=== PATIENT | female | born 1980 | race Caucasian/White ===

== ENCOUNTER → 2017-06-02 | Outpatient (CLI) | payer OTHER ==
[~2017-06-02] MED LIST: CATAFLAM 50 MG; FLEXERIL 10 MG PO; FLEXERIL10 MG PO; FLUCONAZOLE150 MG PO; MOTRIN600 MG PO
== END | disposition home or self-care (01) ==
LOC: PPHC 08:58
DX: Z00.00 Encounter for general adult medical examination without abnormal findings (principal)

== ENCOUNTER 2017-07-23 13:14 | Outpatient (CLI) | payer OTHER | END 2017-07-23 13:19 | disposition home or self-care (01) | LOC: LAB 13:14 | DX: Z11.3 Encounter for screening for infections with a predominantly sexual mode of transmission (principal); Z01.89 Encounter for other specified special examinations; E78.5 Hyperlipidemia, unspecified; E55.9 Vitamin D deficiency, unspecified ==

== ENCOUNTER → 2017-11-06 09:49 | Outpatient (CLI) | payer OTHER | END | disposition home or self-care (01) | LOC: LAB 09:49 | DX: E03.8 Other specified hypothyroidism (principal); R10.9 Unspecified abdominal pain ==

== ENCOUNTER 2017-11-06 11:09 | Outpatient (CLI) | payer OTHER | END 2017-11-06 12:51 | disposition home or self-care (01) | LOC: SONOGRAMA 11:09 | DX: R10.11 Right upper quadrant pain (principal) ==

== ENCOUNTER 2018-01-21 08:55 | Outpatient (CLI) | payer OTHER | END 2018-01-21 09:04 | disposition home or self-care (01) | LOC: LAB 08:55 | DX: E03.8 Other specified hypothyroidism (principal) ==

== ENCOUNTER → 2018-08-12 06:13 | Outpatient (CLI) | payer OTHER | END | disposition home or self-care (01) | LOC: LAB 06:13 | DX: E03.8 Other specified hypothyroidism (principal); E78.49 Other hyperlipidemia; Z00.00 Encounter for general adult medical examination without abnormal findings ==

== ENCOUNTER 2019-03-28 09:25 | Outpatient (CLI) | payer OTHER | END 2019-03-28 09:32 | disposition home or self-care (01) | LOC: LAB 09:25 | DX: Z00.00 Encounter for general adult medical examination without abnormal findings (principal); E78.49 Other hyperlipidemia; E55.9 Vitamin D deficiency, unspecified; E03.8 Other specified hypothyroidism; N39.0 Urinary tract infection, site not specified; E16.2 Hypoglycemia, unspecified; E56.8 Deficiency of other vitamins; Z11.3 Encounter for screening for infections with a predominantly sexual mode of transmission; R97.1 Elevated cancer antigen 125 [CA 125]; R53.1 Weakness; E66.01 Morbid (severe) obesity due to excess calories ==